=== PATIENT | male | born 1945 | race Caucasian/White ===

== ENCOUNTER → 2024-08-12 | Outpatient (CLI) | payer MEDICARE, BC, SELFPAY ==
[2024-08-12 16:02] LABS: Misc Send Out* See Sep Rpt
[2024-08-12 16:38] LABS: Eosinophils % (Auto) 2 % (0-10); Lymphocytes # (Auto) 2.3 Thou/mm3 (1.0-4.8); Monocytes % (Auto) 3 % (0-12); Nucleated Red Blood Cell % 0 /100 WBC (0)
[2024-08-12 16:40] LABS: Basophils # (Auto) 4.1 Thou/mm3 (0.0-0.2); Basophils % (Auto) 4 % (0-2.5); Eosinophils # (Auto) 1.7 Thou/mm3 (0.0-0.5); Hematocrit 38.1 % (41.0-53.0); Hemoglobin 12.5 g/dL (13.5-16.0); Immature Granulocytes % (Auto) 35 % (0-0); Immature Granulocytes Auto 36.49 Thou/mm3 (0.00-0.00); Lymphocytes % (Auto) 2 % (10-50); Mean Corpuscular HGB Conc 32.8 g/dl (31.0-37.0); Mean Corpuscular Hemoglobin 32.2 pg (25.0-35.0); Mean Corpuscular Volume 98 fL (80-100); Monocytes # (Auto) 3.3 Thou/mm3 (0.0-0.8); Neutrophils # (Auto) 55.6 Thou/mm3 (1.8-7.7); Neutrophils % (Auto) 54 % (37-80); Nucleated Red Blood Cell # 0.43 Thou/mm3 (0.00-0.00); Platelet Count 447 Thou/mm3 (140-440); RDW Standard Deviation 56.3 fL (35.1-43.9); Red Blood Count 3.88 Miln/mm3 (4.50-5.90)
[2024-08-12 17:01] LABS: Prostate Specific Antigen 22.19 ng/mL (0-4.00)
[2024-08-12 17:10] LABS: White Blood Count 103.5 Thou/mm3 (3.8-10.6)
[2024-08-12 17:32] LABS: Alanine Aminotransferase 15 U/L (10-49); Albumin, Serum 4.3 gm/dL (3.4-4.8); Alkaline Phosphatase 55 U/L (46-116); Anion Gap 7 (7-16); Aspartate Amino Transferase 27 U/L (0-34); BUN/Creatinine Ratio 17 Ratio (12-20); Bilirubin,Total 0.3 mg/dL (0.3-1.2); Blood Urea Nitrogen 20 mg/dL (9-23); Calcium 9.6 mg/dL (8.3-10.6); Calcium (Corrected) 9.6 mg/dL (8.5-10.1); Carbon Dioxide 26.2 mMol/L (20.0-31.0); Chloride 107 mMol/L (98-107); Creatinine (Component) 1.2 mg/dL (0.6-1.3); Globulin 2.2 gm/dL (2.3-3.5); Glucose 94 mg/dL (74-106); LDH (Lactate Dehydrogenase) 622 U/L (120-246); Osmolality,Calculated 282 (275-295); Path Review Blood Smear Sent to Pathologist; Potassium 4.3 mMol/L (3.4-5.1); Sodium 140 mMol/L (136-145); Total Protein 6.5 gm/dL (5.7-8.2); Uric Acid 5.4 mg/dL (3.7-9.2); eGFR > 60 See Note
[2024-08-18 06:29] LABS: Testosterone,Total* 277 ng/dL (250-1100)
== END | disposition home or self-care (01) ==
PROVIDERS: PCP Internal Medicine; Referring Provider Specialist; Visit Provider Specialist
DX: C61 Malignant neoplasm of prostate (principal)
CPT/HCPCS: 36415; 80053; 83615; 83735; 84060; 84153; 84403; 84550; 85025

== ENCOUNTER 2024-10-05 09:30 | Day surgery (SDC) | payer MEDICARE, BC, SELFPAY ==
[2024-10-05] VITALS (8 sets, daily range): BP systolic 140–183; BP diastolic 72–99; PULSE 60–95; RESP 11–18; TEMP 36.6–36.8; O2SAT 97–100; BMI 24.3
[2024-10-05] MEDS: DiphenhydrAMINE INJ 50 MG/ML VIAL 25 MG IV (12:43)
[2024-10-05] MEDS: MIDAZOLAM INJ 1 MG/ML VIAL 2 ML (ASD USE ONLY) 2 MG IV (12:45)
[2024-10-05] MEDS: Ampicillin Inj 2,000 MG in SODIUM CHLORIDE 0.9% (P) 100 ML 200 MG IV (12:45)
[2024-10-05] MEDS: fentaNYL CIT INJ 50 mCg/ML AMP 2ML (ASD USE ONLY) IV (12:45)
[2024-10-05] MEDS: ONDANSETRON INJ 2 MG/ML INJ 2 ML 4 MG IV (12:49)
== END 2024-10-05 13:46 | disposition home or self-care (01) ==
PROVIDERS: PCP Internal Medicine; Referring Provider Specialist; Visit Provider Specialist
PROC: 0DBE8ZX Excision of Large Intestine, Via Natural or Artificial Opening Endoscopic, Diagnostic (ICD-10-PCS; CPT 45380; principal; 2024-10-05 10:45)
DX: K64.9 Unspecified hemorrhoids (principal)
CPT/HCPCS: 45378; J0290; J1200; J2250; J2405; J3010

== ENCOUNTER 2025-04-13 17:44 | Emergency (ER) | payer MEDICARE, BC, SELFPAY ==
[2025-04-13 17:47] VITALS: BMI 25.8
[2025-04-13 18:19] VITALS: BP 132/70; PULSE 43; RESP 18; TEMP 36.6; O2SAT 95
--- NOTE | 2025-04-13 18:30 | XR_ITS ---
Examination: Venous duplex lower extremity sonogram, bilateral. Date and time of exam: April 13, 2025 1927 hours INDICATIONS: Bilateral leg swelling beginning 2 days ago Technique: Multiple sonographic images of the deep venous system have been obtained. B-mode/2-D grayscale imaging of vascular structures and Doppler spectral analysis (waveforms) and color performed Both legs are examined. Findings: Deep venous systems do not demonstrate abnormal echogenicity. All visualized deep veins exhibit compressibility. All visualized deep veins exhibit augmentation. Impression: Negative for deep vein thrombosis
--- NOTE | 2025-04-13 18:42 | PD.EDEXREM ---
ED Extremity Problem RME/HPI General Chief complaint: General Adult/Misc Complain Stated complaint: R/O L) LEG DVT; SENT BY PCP Time Seen by Provider: 04/13/25 18:29 Arrival date/time: 04/13/25 17:44 79M with history of prostate cancer and recent diagnosis of leukemia, as well as HTN and anxiety presents to ED with 2 day of bilateral leg swelling (R>L). Patient denies URI symptoms, pain, and SOB. Patient is already on Eliquis BID, but PCP still sent him here to get US. Patient denies numbness and leg coldness. Limitations: no limitations Related Data Home Medications ?Medication ?Instructions ?Recorded ?Confirmed apixaban 5 mg tablet (Eliquis) 5 mg PO BID 10/05/24 10/05/24 asciminib 40 mg tablet (Scemblix) 40 mg PO QDAY 10/05/24 10/05/24 atorvastatin 20 mg tablet 20 mg PO QDAY 10/05/24 10/05/24 bimatoprost 0.01 % eye drops 1 drp ophthalmic (eye) HS 10/05/24 10/05/24 (Lumigan) duloxetine 60 mg capsule,delayed 60 mg PO BID 10/05/24 10/05/24 release losartan 50 mg tablet 50 mg PO QDAY 10/05/24 10/05/24 Allergies Allergy/AdvReac Type Severity Reaction Status Date / Time hydrochlorothiazide Allergy Severe Rash Verified 04/13/25 17:49 Review of Systems Review of Systems Systems Reviewed: All systems reviewed, normal except as documented Constitutional Constitutional: Reports system reviewed and no additional complaints, except as documented, Denies fever(s) and Denies headache(s) ENT Ears, Nose, Mouth, and Throat: Denies disequilibrium and Denies headache(s) Cardiovascular Cardiovascular: Reports system reviewed and no additional complaints, except as documented, Denies chest pain and Denies dyspnea Respiratory Respiratory: Reports system reviewed and no additional complaints, except as documented, Denies cough and Denies dyspnea Gastrointestinal Gastrointestinal: Reports system reviewed and no additional complaints, except as documented, Denies abdominal pain, Denies nausea and Denies vomiting Musculoskeletal Musculoskeletal: Reports as per HPI and Reports other (leg swelling) Neurologic Neurologic: Reports system reviewed and no additional complaints, except as documented, Denies confusion, Denies disequilibrium and Denies headache(s) Psychiatric Psychiatric: Denies confusion Past Medical History Past Medical History NEUROLOGIC: Positive 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); Negative Seizures CARDIAC: Positive Cardiac Disorders, Cardiac Arrhythmia, Hypercholesterolemia and Hypertension; Negative Congestive Heart Failure RESPIRATORY: Negative Chronic Obstructive Pulmonary Disease (COPD) GASTROINTESTINAL: Positive Gastrointestinal Disorders and Gastrointestinal Bleed (RECTAL BLEED DURING DEFECATION) GENITOURINARY: Positive Genitourinary Disorders, Kidney Stones (IN THE PAST) and Prostate Cancer; Negative Renal Disease MUSCULOSKELETAL: Positive Musculoskeletal Disorders, Osteoporosis (NECK) and Fractures (RIGHT ANKLE, LEFT WRIST) ENDOCRINE: Negative Endocrine Disorders, Diabetes Mellitus Type 1 or Diabetes Mellitus Type 2 HEMATOLOGIC: Negative Anemia PSYCHO/SOCIAL: Positive Anxiety OTHER HISTORY: Positive Chicken Pox, Measles, Cancer and Prostate Cancer; Negative Falls, Blood Transfusions, Blood Transfusion Reaction or Anesthesia Reactions Surgical History SURGICAL: Positive Transurethral Resection and Open Reduction Internal Fixation (RIGHT ANKLE) Social History SMOKING STATUS: Never smoker ED Exam General Limitations: Present no limitations General appearance: Present alert and in no apparent distress Head Head exam: Present atraumatic Eye Eye exam: Present normal appearance, PERRL and EOMI ENT ENT exam: Present normal exam, normal oropharynx and mucous membranes moist Neck Neck exam: Present normal inspection, full ROM and trachea midline Chest Chest inspection: Present normal inspection and symmetric chest wall rise Respiratory Respiratory exam: Present normal lung sounds bilaterally Cardiovascular Cardiovascular exam: Present regular rate, normal rhythm and normal heart sounds Abdominal Exam Abdominal exam: Present soft and normal bowel sounds Extremities Exam Extremities exam: Present full ROM Expanded Lower Extremity Exam Lower leg exam: Present full ROM (R>L)) and swelling Ankle exam: Present full ROM and swelling Foot/toe exam: Present full ROM and swelling Back Exam Back exam: Present normal inspection and full ROM Neurological Exam Neurological exam: Present alert, oriented X3 and CN II-XII intact Psychiatric Psychiatric exam: Present normal affect and normal mood Skin Skin exam: Present warm, dry, intact and normal color Course Quality Measures none Orders Category Date Time Status US venous doppler LE BI Stat Exams 04/13/25 18:30 Completed Vital Signs Vital signs: Vital Signs Temperature 97.9 F 04/13/25 18:19 Pulse Rate 43 L 04/13/25 18:19 Respiratory Rate 18 04/13/25 18:19 Blood Pressure 132/70 H 04/13/25 18:19 Pulse Oximetry (%) 95 04/13/25 18:19 Oxygen Delivery Method Room Air 04/13/25 18:19 O2 at 95% on RA and WNLs Extremity Problem MDM Narrative MDM Narrative:: 79M with history of prostate cancer and recent diagnosis of leukemia, as well as HTN and anxiety presents to ED with 2 day of bilateral leg swelling (R>L). Patient denies URI symptoms, pain, and SOB. Patient is already on Eliquis BID, but PCP still sent him here to get US. Patient denies numbness and leg coldness. Physical exam reveals mild BLE swelling (R>L). Skin is warm. Gait and ROM intact. Clear lungs. Normal WOB. Patient is afebrile, calm, and alert. HR was noted in the 40s, but patient states that's normal for him. US no DVT. Athletic Events Scorer given. Patient data External records reviewed:: [facility] previous records Clinical information provided by:: patient Social determinants that could affect healthcare access:: mental health Patient has the following chronic illnesses:: prostate cancer and recent diagnosis of leukemia, as well as HTN and anxiety How is presenting disease/condition affected by chronic disease/condition?: exacerbated by Evaluation data The following diagnostics were reviewed and interpreted by me:: radiology exam(s) Lab and/or radiology exams considered but not ordered:: ordered Interpretation Summary: above Medications / Prescriptions Medications or Prescriptions considered but not ordered:: not ordered Medication administrations:: n/a Consultations Consultation(s) initiated? (list below): No Diagnosis Extremity Problem Differential Diagnosis: herpes zoster, gout, cellulitis, superficial thrombophlebitis, deep venous thrombosis of upper extremity, lower extremity edema, deep vein thrombosis of lower extremity and other (leg swelling) Most likely diagnosis given after review of the tests above:: leg swelling Admission Indicated Admission indicated?: not indicated Admission Request Was there a request for admission?: No Disposition Plan Disposition Plan: Discharge Discharge Attestation Discharge Attestation: The patient and all family members were given an opportunity to ask questions and understood the discharge instructions. Discharge instructions specifically effects, indications for sooner follow up or return to the emergency department, and the expected course of current diagnosis. Patient condition: Stable Discharge Plan Plan Patient Disposition: HOME (Self Care) Discharge Disposition comment: Stable Prescriptions/Referrals Prescriptions/Med Rec: No Action losartan 50 mg tablet 50 mg PO QDAY Patient Comments: TAKE 1 TABLET BY MOUTH EVERY DAY atorvastatin 20 mg tablet 20 mg PO QDAY Patient Comments: TAKE 1 TABLET BY MOUTH EVERY DAY duloxetine 60 mg capsule,delayed release(DR/EC) 60 mg PO BID Lumigan 0.01 % drops 1 drp OPHTHALMIC (EYE) HS Patient Comments: INSTILL 1 DROP INTO BOTH EYES IN THE EVENING Eliquis 5 mg tablet 5 mg PO BID Patient Comments: TAKE 1 TABLET BY MOUTH TWICE A DAY Scemblix 40 mg tablet 40 mg PO QDAY Referrals: Rajinder Martinez, [Primary Care Provider] - In 1 week Problem List Clinical Impression: Leg swelling Patient/Caregiver Discharge Instructions Education Materials: ED Leg Swelling in Both Legs Additional Instructions: Please follow-up with PCP within 24-48 hours and return immediately if symptoms worsen. Print Language: Pashto Stand Alone Forms: Patient Portal Info Letter PA/EDIS Supervising Physician WANDY/EDIS Supervising Physician: Dr. Casey
[2025-04-13 21:01] VITALS: BP 130/62; PULSE 56; RESP 16; TEMP 36.6; O2SAT 99
== END 2025-04-13 21:02 | disposition home or self-care (01) ==
PROVIDERS: Emergency Provider Emergency Medicine; PCP Internal Medicine
DX: M79.89 Other specified soft tissue disorders (principal); F41.9 Anxiety disorder, unspecified; I10 Essential (primary) hypertension
CPT/HCPCS: 93970; 99283

== ENCOUNTER → 2025-04-23 | Outpatient (CLI) | payer MEDICARE, BC, SELFPAY ==
[2025-04-23 16:26] LABS: Basophils # (Auto) 0.1 Thou/mm3 (0.0-0.2); Basophils % (Auto) 1 % (0-2.5); Eosinophils # (Auto) 0.5 Thou/mm3 (0.0-0.5); Eosinophils % (Auto) 9 % (0-10); Hematocrit 33.8 % (41.0-53.0); Hemoglobin 10.8 g/dL (13.5-16.0); Immature Granulocytes Auto 0.05 Thou/mm3 (0.00-0.00); Lymphocytes # (Auto) 0.9 Thou/mm3 (1.0-4.8); Lymphocytes % (Auto) 15 % (10-50); Mean Corpuscular HGB Conc 32.0 g/dl (31.0-37.0); Mean Corpuscular Hemoglobin 30.7 pg (25.0-35.0); Mean Corpuscular Volume 96 fL (80-100); Monocytes # (Auto) 0.7 Thou/mm3 (0.0-0.8); Monocytes % (Auto) 13 % (0-12); Neutrophils # (Auto) 3.7 Thou/mm3 (1.8-7.7); Neutrophils % (Auto) 62 % (37-80); Nucleated Red Blood Cell # 0.00 Thou/mm3 (0.00-0.00); Nucleated Red Blood Cell % 0 /100 WBC (0); Platelet Count 249 Thou/mm3 (140-440); RDW Standard Deviation 51.9 fL (35.1-43.9); Red Blood Count 3.52 Miln/mm3 (4.50-5.90); White Blood Count 5.9 Thou/mm3 (3.8-10.6)
[2025-04-23 16:54] LABS: Alanine Aminotransferase 14 U/L (10-49); Albumin, Serum 4.1 gm/dL (3.4-4.8); Albumin/Globulin Ratio 1.8 (1.2-2.2); Alkaline Phosphatase 74 U/L (46-116); Anion Gap 11 (7-16); Aspartate Amino Transferase 13 U/L (0-34); BUN/Creatinine Ratio 17 Ratio (12-20); Bilirubin,Total 0.4 mg/dL (0.3-1.2); Blood Urea Nitrogen 17 mg/dL (9-23); Calcium 9.0 mg/dL (8.3-10.6); Calcium (Corrected) 9.0 mg/dL (8.5-10.1); Carbon Dioxide 29.5 mMol/L (20.0-31.0); Chloride 103 mMol/L (98-107); Creatinine (Component) 1.0 mg/dL (0.6-1.3); Globulin 2.3 gm/dL (2.3-3.5); Glucose 94 mg/dL (74-106); Osmolality,Calculated 286 (275-295); Potassium 4.3 mMol/L (3.4-5.1); Sodium 143 mMol/L (136-145); Thyroid Stimulating Hormone 1.12 uIU/mL (0.55-4.78); Total Protein 6.4 gm/dL (5.7-8.2); eGFR > 60 See Note
== END | disposition home or self-care (01) ==
LOC: COPL 15:52
PROVIDERS: PCP Internal Medicine; Referring Provider Internal Medicine; Visit Provider Internal Medicine
DX: C95.90 Leukemia, unspecified not having achieved remission (principal); C61 Malignant neoplasm of prostate; R60.0 Localized edema
CPT/HCPCS: 36415; 80053; 80061; 83036; 83880; 84443; 85025

== ENCOUNTER → 2025-05-21 | Outpatient (CLI) | payer MEDICARE, BC, SELFPAY ==
[2025-05-21 17:42] LABS: Anion Gap 8 (7-16); BUN/Creatinine Ratio 19 Ratio (12-20); Blood Urea Nitrogen 19 mg/dL (9-23); Calcium 9.8 mg/dL (8.3-10.6); Carbon Dioxide 29.7 mMol/L (20.0-31.0); Chloride 106 mMol/L (98-107); Creatinine (Component) 1.0 mg/dL (0.6-1.3); Glucose 115 mg/dL (74-106); Magnesium 2.0 mg/dL (1.6-2.6); Osmolality,Calculated 290 (275-295); Potassium 4.7 mMol/L (3.4-5.1); Sodium 144 mMol/L (136-145); eGFR > 60 See Note
== END | disposition home or self-care (01) ==
LOC: COPL 16:06
PROVIDERS: PCP Internal Medicine; Referring Provider Internal Medicine Cardiovascular Disease; Visit Provider Internal Medicine Cardiovascular Disease
DX: I47.10 Supraventricular tachycardia, unspecified (principal)
CPT/HCPCS: 36415; 80048; 83735

== ENCOUNTER → 2025-08-04 | Outpatient (CLI) | payer MEDICARE, BC, SELFPAY ==
--- NOTE | 2025-08-04 13:30 | XR_ITS ---
Examination: CT brain head without contrast. 2-D sagittal coronal reconstructions Date and time of exam: 08/04/2025 at 1:53 p.m. CTDI: vol (mGy): 49 DLP: (mGycm): 982 Technique: Multiple CT axial sections of the brain have been obtained, 5 mm slice thickness. Contrast has not been administered. 2-D sagittal, coronal reconstructions have been obtained Low dose protocols were performed. One or more of the following dose reduction techniques were used; automated exposure control, adjustment of the mA and/or KV according to patient size, use of iterative reconstruction technique. Findings: Global cerebral involutional changes are present. There is ventricular dilatation that appears out of proportion to the degree of cortical sulcal widening. A left occipital approach NEUROPHYSIOLOGIST shunt catheter is in place with its tip terminating in the body of the right lateral ventricle. No apparent fracture or kink along the visualized portion of the shunt catheter. There is no evidence for acute large vessel ischemic infarction, hemorrhage, mass or midline shift. Remote right suboccipital craniectomy changes are present. There are surgical clips in the right CP angle, and there there are multiple embolization coils along the right cavernous sinus extending to the orbital apex. The calvarium is otherwise intact. Minimal mucosal hypertrophy is visualized in bilateral ethmoid air cells. No fluid levels or masses in the paranasal sinuses. No abnormal opacification of the mastoid air cells or middle ear cavities. Impression: Negative noncontrast head CT for acute intracranial abnormality. Global cerebral involutional changes with ventricular prominence and NEUROPHYSIOLOGIST shunt catheter as described. No comparison studies available at time of this dictation to assess for stability or potential shunt malfunction.
== END | disposition home or self-care (01) ==
PROVIDERS: Referring Provider Specialist; Visit Provider Specialist
DX: G93.89 Other specified disorders of brain (principal); Z98.2 Presence of cerebrospinal fluid drainage device
CPT/HCPCS: 70450

== ENCOUNTER → 2025-08-11 | Outpatient (BNVA) | payer MEDICARE, BC, SELFPAY | END | disposition home or self-care (01) | PROVIDERS: PCP Internal Medicine; Referring Provider Internal Medicine; Visit Provider Student in an Organized Health Care Education/Training Program | DX: N39.3 Stress incontinence (female) (male) (principal); Z85.46 Personal history of malignant neoplasm of prostate | CPT/HCPCS: 99202; 99212; G0463 ==

== ENCOUNTER → 2025-08-31 | Outpatient (CLI) | payer MEDICARE, BC, SELFPAY | END | disposition home or self-care (01) | PROVIDERS: PCP Internal Medicine; Referring Provider Internal Medicine; Visit Provider Internal Medicine | DX: N39.0 Urinary tract infection, site not specified (principal) | CPT/HCPCS: 87077; 87086; 87186 ==

== ENCOUNTER → 2025-09-13 | Outpatient (CLI) | payer MEDICARE, BC, SELFPAY | END | disposition home or self-care (01) | LOC: SLDO 14:19 | PROVIDERS: Referring Provider Internal Medicine; Visit Provider Internal Medicine | DX: N39.0 Urinary tract infection, site not specified (principal) | CPT/HCPCS: 87077; 87086; 87186 ==